=== PATIENT | female | born 1950 | race Caucasian/White ===

== ENCOUNTER 2025-02-21 11:15 | Emergency (ER) | payer MEDICARE, OTHER ==
[2025-02-21 11:26] VITALS: TEMP 97.8
--- NOTE | 2025-02-21 11:45 | ERPHSYRPT ---
- History of Present Illness Time Seen by Provider: 02/21/25 11:44 Patient Subjective Stated Complaint: PT STATES HER RIGHT LEG IS SWOLLEN Triage Nursing Assessment: PT ARRIVES TO THE ED VIA PRIVATE VEHICLE. PT AMBULATES INTO THE ER WITHOUT DIFFICULTY. PT IS ALERT AND ORIENTED X4. NO SIGNS OF RESPIRATORY DISTRESS, PULSES EQUAL BILATERALLY. PT STATES THAT FOR THE PAST WEEK HER RIGHT LOWER LEG HAS BEEN SWOLLEN, RED, AND PAINFUL. PT RATES THIS PAIN A 4/10 BUT WITH PALPATION IT IS MORE OF A 8/10. PT DENIES FALLING OR ANY TRAUMA. PTS RIGHT LOWER/MEDIAL LEG IS SWOLLEN, RED, HOT, AND TENDER. 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 PT DOES STATES THAT SHE WILL SCRATCH AND PICK AT THESE AREAS. PT STATES THAT SHE WAS HERE FOR A CAT SCAN A COUPLE WEEKS AGO AND WAS PLACED ON METRONDIAZOLE FOR A SMALL BOWEL INFECTION, PT STATES "I THINK THIS MIGHT BE FROM THE ANTIBIOTICS I WAS PLACED ON". PT RANGE OF MOTION AND STRENGTH HAS NOT BEEN AFECTED FROM THE AFFECTED SITE. Physician History: This is a 74-year-old white female patient arrives for private vehicle and is a patient of nurse practitioner Marko with complaint of redness of the right lower extremity medial aspect. Patient states this has been present for a few days. Patient was seen at outpatient clinic yesterday and given a prescription of Keflex which she has not picked up or taken at this time. Patient was at work and her fellow employees made her concerned about the possibility of a blood clot (DVT) of this right lower extremity. Patient denies chest pain. Patient denies shortness of breath. Patient denies cough. Patient has not fallen. She has not sustained any kind of trauma to the site. Patient has a history of hypertension and gastroesophageal reflux disease. Occurred: days ago (Redness noted a few days ago) Quality: burning Severity of Pain-Max: mild Severity of Pain-Current: mild Lower Extremities Pain: ankle: right (Medial aspect) Modifying Factors: Improves With: movement Associated Symptoms: none Allergies/Adverse Reactions: No Known Drug Allergies Allergy (Verified 02/21/25 11:23) Home Medications: Lansoprazole [Prevacid] 30 mg PO DAILY 01/15/15 [History] Metoprolol Succinate 25 mg Xl* [Toprol-Xl 25MG Tablets] 25 mg PO DAILY 02/21/25 [History] Hx Tetanus, Diphtheria Vaccination/Date Given: No Hx Influenza Vaccination/Date Given: No Hx Pneumococcal Vaccination/Date Given: No Immunizations Up to Date: Yes Travel Risk - International Travel Have you traveled outside of the country in past 3 weeks: No - Emerging Infectious Disease Are you exhibiting symptoms associated with any current EIDs: No - Review of Systems Constitutional: No Symptoms Eyes: No Symptoms Ears, Nose, & Throat: No Symptoms Respiratory: No Symptoms Cardiac: No Symptoms Abdominal/Gastrointestinal: No Symptoms Genitourinary Symptoms: No Symptoms Skin: Cellulitis (Medial aspect right ankle redness and warmth mild tenderness to palpation) Neurological: No Symptoms Psychological: No Symptoms Endocrine: No Symptoms Hematologic/Lymphatic: No Symptoms Immunological/Allergic: No Symptoms All Other Systems: Reviewed and Negative - Past Medical History Pertinent Past Medical History: Yes Neurological History: No Pertinent History ENT History: No Pertinent History Cardiac History: No Pertinent History Respiratory History: No Pertinent History Endocrine Medical History: No Pertinent History Musculoskeletal History: No Pertinent History GI Medical History: No Pertinent History History: No Pertinent History Psycho-Social History: No Pertinent History Female Reproductive Disorders: Cervical Cancer - Past Surgical History Past Surgical History: Yes Neuro Surgical History: No Pertinent History Cardiac: No Pertinent History Respiratory: No Pertinent History Gastrointestinal: No Pertinent History Genitourinary: No Pertinent History Musculoskeletal: No Pertinent History Female Surgical History: Hysterectomy Other Surgical History: History of cervical cancer ,vag hysterectomy - Social History Smoking Status: Never smoker Exposure to second hand smoke: No Drug Use: none - Social Determinants of Health Will the patient participate in the screening: Yes Do you worry about a steady place to live?: No Do you have any problems with any of the following?: No known problems In the past 12 months,have you had to go without utilities?: No Transportation Issues: No Has anyone in your support network made you feel unsafe?: No Have you or anyone in your house had to go w/o enough food: No - Nursing Vital Signs Nursing Vital Signs: Initial Vital Signs Temperature 97.8 F 02/21/25 11:24 Pulse Rate 73 02/21/25 11:24 Respiratory Rate 15 02/21/25 11:24 Blood Pressure 171/96 02/21/25 11:24 O2 Sat by Pulse Oximetry 100 02/21/25 11:24 Pain Scale Pain Intensity 4 - Physical Exam General Appearance: no apparent distress, alert, anxiety, thin Eyes, Ears, Nose, Throat Exam: normal ENT inspection, moist mucous membranes Neck Exam: normal inspection, non-tender, supple, full range of motion Cardiovascular/Respiratory Exam: chest non-tender, no respiratory distress Gastrointestinal/Abdominal Exam: non-tender Hips Exam: bilateral: non-tender, normal inspection, normal range of motion, no evidence of injury Legs Exam: bilateral leg: non-tender, normal inspection, normal range of motion, no evidence of injury Knees Exam: bilateral knee: non-tender, normal inspection, normal range of motion, no evidence of injury Ankle Exam: right ankle: soft tissue tenderness (Medial aspect distal lower leg/proximal ankle), other (Associated warmth and redness medial aspect distal lower leg/proximal ankle), left ankle: non-tender, normal inspection, normal range of motion, no evidence of injury Foot Exam: bilateral foot: non-tender, normal inspection, normal range of motion, no evidence of injury Neuro/Tendon Exam: normal sensation, normal motor functions, normal tendon functions, no evidence tendon injury, No sensory deficit Mental Status Exam: alert, oriented x 3, cooperative Skin Exam: other (Localized cellulitis medial aspect distal lower leg right side/proximal ankle right side) SpO2 Interpretation: normal SpO2: 100 O2 Delivery: Room Air - Course Nursing assessment & vital signs reviewed: Yes - Progress Progress: unchanged Progress Note: 02/21/25 13:34 My medical decision making and the assignment of low complexity of this patient's medical issue today is based on review of the patient's past medical history, reviewed the patient's medication list, reviewed patient drug allergy list, history present illness and physical findings on examination. The workup that was recommended to the patient included D-dimer level and/or venous Doppler of the right lower extremity. Differential diagnosis includes but is not limited to superficial phlebitis, DVT, cellulitis The patient is concerned about both cellulitis and the possibility of having a DVT. I explained to her that I could proceed directly to do venous Doppler or perform a D-dimer level and if this was normal then discharge her to home. If is elevated we will proceed with venous Doppler. Patient is refusing this testing and has to leave to get back to work. She signed AGAINST MEDICAL ADVICE form Counseled pt/family regarding: diagnosis, need for follow-up Medical Desision Making - Diagnostic Testing Diagnostic test were ordered, analyzed, and reviewed by me: No - Risk of complications Low Risk: Low risk of morbidity from additional dx testing or treatment - Departure Departure Disposition: AMA Clinical Impression: Cellulitis of right ankle Condition: Stable Critical Care Time: No Referrals: CHERIE VAZQUEZ NP [Primary Care Provider, [facility]] - Follow up/PCP as directed Additional Instructions: Take your antibiotics as prescribed. Call your primary care provider tomorrow, 02/22/2025, to make arrangements for follow-up appointment for further evaluation and management. If he wishes to complete the workup that was started and he, return to the emergency department for reevaluation.
[2025-02-21 12:17] VITALS: RESP 18
[2025-02-21 13:32] VITALS: BP 156/78; PULSE 74
[2025-02-21 13:36] VITALS: O2SAT 100
== END 2025-02-21 13:31 | disposition left against medical advice (07) ==
LOC: ED 11:15
DX: L03.115 Cellulitis of right lower limb (principal); I10 Essential (primary) hypertension; Z79.899 Other long term (current) drug therapy